=== PATIENT | male | born 1950 | race Two or more races ===

== ENCOUNTER 2018-01-11 09:36 | Outpatient (CLI) | payer OTHER | END 2018-01-11 09:42 | disposition home or self-care (01) | LOC: SONOGRAMA 09:36 | DX: E04.2 Nontoxic multinodular goiter (principal) ==

== ENCOUNTER 2019-06-18 08:57 | Outpatient (CLI) | payer OTHER | END 2019-06-18 09:04 | disposition home or self-care (01) | LOC: SONOGRAMA 08:57 | DX: E04.2 Nontoxic multinodular goiter (principal) ==